=== PATIENT | male | born 1985 | race African-American/Black ===

== ENCOUNTER 2017-03-03 13:04 | Emergency (ER) | payer OTHER ==
[~2017-03-03] VITALS: Ht 190.5 cm; Wt 135.0 kg
[~2017-03-03 13:04] MED LIST: Z.0.NO CURRENT MEDS
[2017-03-03 13:10] VITALS: BP 140/89; PULSE 72; RESP 18; TEMP 98.5; O2SAT 99
[2017-03-03] MEDS ORDERED: ZOFR4TAB3 SL (13:58)
--- NOTE | 2017-03-03 13:59 | PD ---
HPI Chief Complaint: GI Complaint Time Seen by Provider: 13:49 Travel History International Travel<30 days: No Contact w/Intl Traveler<30days: No Traveled to known affect area: No History of Present Illness HPI 32-year-old male arrives stating that 3 days ago he developed nausea vomiting and diarrhea after he went to a [employer]. Symptoms more or less resolved. They were moderate at the time. He had no fever or abdominal pain. He has since regained his appetite. Patient otherwise healthy. [facility] Past Medical History Diminished Hearing: No Influenza Vaccination: No ?: Not Past Surgical History Tympanostomy Tube: Yes Social History Alcohol Use: Yes (SOCIAL) Tobacco Use: No Substance Use: Yes (THC) Allergies-Medications (Allergen,Severity, Reaction): Coded Allergies: [place] (Verified Allergy, Severe, RASH, 03/03/17) Reported Meds & Prescriptions Reported Meds & Active Scripts Active Zofran Odt (Ondansetron Odt) 4 Mg Tab 4 Mg SL Q8HR PRN Review of Systems Except as stated in HPI: all other systems reviewed are Neg Physical Exam Narrative GENERAL: 32-year-old male well-nourished well-developed no acute distress SKIN: Warm and dry. HEAD: Atraumatic. Normocephalic. EYES: Pupils equal and round. No scleral icterus. No injection or drainage. ENT: No nasal bleeding or discharge. Mucous membranes pink and moist. NECK: Trachea midline. No JVD. CARDIOVASCULAR: Regular rate and rhythm. RESPIRATORY: No accessory muscle use. Clear to auscultation. Breath sounds equal bilaterally. GASTROINTESTINAL: Abdomen soft, non-tender, nondistended. Hepatic and splenic margins not palpable. MUSCULOSKELETAL: Extremities without clubbing, cyanosis, or edema. No obvious deformities. NEUROLOGICAL: Awake and alert. No obvious cranial nerve deficits. Motor grossly within normal limits. Five out of 5 muscle strength in the arms and legs. Normal speech. PSYCHIATRIC: Appropriate mood and affect; insight and judgment normal. Data Data Last Documented VS Vital Signs Date Time Temp Pulse Resp B/P Pulse Ox O2 Delivery O2 Flow Rate FiO2 03/03/17 13:10 98.5 72 18 140/89 99 Vital signs reviewed MDM Medical Decision Making Medical Screen Exam Complete: Yes Emergency Medical Condition: Yes Medical Record Reviewed: Yes Differential Diagnosis Constipation, Gastritis, Acute Cholecystitis, Biliary Colic, Pancreatitis, MILLS , Hepatitis, Bowel Obstruction, Cystitis, Mesenteric Ischemia, AAA, Appendicitis , Renal Stone/Hydronephrosis, GERD, perforated viscous Narrative Course Patient is well-appearing. He does not need blood work. Work note provided at his request. Diagnosis Primary Impression: Nausea vomiting and diarrhea Referrals: Primary Care Physician 2 days Departure Forms: Tests/Procedures, Work Release Enter return to work date: Feb 26, 2017 Additional Instructions: You have a choice when it comes to health care, and we are glad that you chose [facility]. Hopefully, we have met your expectations on today's visit. You are welcome to return to [facility] at any time, as we are committed to meeting the health care needs of our community. Med/Other Pt SpecificInfo: Prescription(s) given Scripts Ondansetron Odt (Zofran Odt)4 Mg Tab4 Mg SL Q8HR PRN (Nausea/Vomiting) #10 TAB Ref 0 Prov:Mac Masters MD 03/03/17 Disposition: 01 DISCHARGE HOME Condition: Stable Mac Masters MD Mar 03, 2017 13:59
== END 2017-03-03 14:16 | disposition home or self-care (01) ==
LOC: PHED 13:04
DX: R11.2 Nausea with vomiting, unspecified (principal); R19.7 Diarrhea, unspecified
CPT/HCPCS: 99283